=== PATIENT | female | born 1935 | race Two or more races ===

== ENCOUNTER 2017-11-24 12:04 | Inpatient (IN) | payer MEDICARE, OTHER ==
[2017-11-24] MEDS: VANCOMYCIN 1 GM (PMX) 250 ML IVPB (12:15)
[2017-11-24 12:40] LABS: ADD MAN DIFF? NO
[2017-11-24 12:47] LABS: WHITE BLOOD COUNT 22.7 10^3/ul (4.8-10.8)
[2017-11-24 12:47] LABS: ABNORMAL IP MESSAGE 1; BASOPHIL # 0.1 10^3/ul (0.0-0.1); BASOPHILS % 0.3 % (0.0-2.0); HEMATOCRIT 35.3 % (37.0-47.0); HEMOGLOBIN 11.2 g/dl (12.0-16.0); LYMPHOCYTES # 0.8 10^3/ul (0.8-2.9); LYMPHOCYTES % 3.6 % (15.0-51.0); MEAN CORPUSCULAR HEMOGLOBIN 26.5 pg (29.0-33.0); MEAN CORPUSCULAR HGB CONC 31.7 g/dl (32.0-37.0); MEAN CORPUSCULAR VOLUME 83.5 fl (82.0-101.0); MONOCYTE # 0.7 10^3/ul (0.3-0.9); MONOCYTES % 3.1 % (0.0-11.0); NEUTROPHIL # 20.8 10^3/ul (1.6-7.5); NEUTROPHILS % 91.6 % (39.0-77.0); PLATELET COUNT 324 10^3/UL (140-415); RED BLOOD COUNT 4.23 10^6/ul (4.20-5.40); RED CELL DISTRIBUTION WIDTH 14.3 % (11.5-14.5)
[2017-11-24 12:54] LABS: POSITIVE DIFF @See below
[2017-11-24] MEDS: ACETAMINOPHEN 650 MG SUPP PR (12:55)
[2017-11-24] MEDS: SODIUM CHLORIDE 0.9% 1L BAG IV* (12:55)
[2017-11-24] MEDS: PIPER-TAZO 3.375 GM IV (PMX) 100 ML IVPB (12:55)
[2017-11-24 13:05] LABS: ALANINE AMINOTRANSFERASE 147 IU/L (13-69); ALBUMIN 3.3 g/dl (3.3-4.9); ALBUMIN/GLOBULIN RATIO 0.78; ALKALINE PHOSPHATASE 86 IU/L (42-121); ANION GAP 17 (8-16); ASPARTATE AMINO TRANSFERASE 120 IU/L (15-46); BILIRUBIN,INDIRECT 0.4 mg/dl (0-1.1); BILIRUBIN,TOTAL 0.4 mg/dl (0.2-1.3); BLOOD UREA NITROGEN 60 mg/dl (7-20); CALCIUM 8.7 mg/dl (8.4-10.2); CARBON DIOXIDE 15 mmol/L (21-31); CHLORIDE 114 mmol/L (97-110); CREATININE 1.28 mg/dl (0.44-1.00); GLUCOSE 301 mg/dl (70-220); POTASSIUM 4.9 mmol/L (3.5-5.1); SODIUM 141 mmol/L (135-144); TOTAL PROTEIN 7.5 g/dl (6.1-8.1)
[2017-11-24 13:07] LABS: DIGOXIN 0.6 ng/ml (1.0-2.0)
[2017-11-24 13:09] LABS: PROTIME 15.4 Sec (11.9-14.9); PT RATIO 1.2
[2017-11-24 13:10] LABS: PARTIAL THROMBOPLASTIN TIME 28.1 Sec (25.0-35.0)
[2017-11-24 13:17] LABS: TROPONIN-I 0.027 ng/ml (0.000-0.120)
[2017-11-24] MEDS ORDERED: ONDANSETRON 4 MG INJ IV (14:00)
[2017-11-24] MEDS ORDERED: METOCLOPRAMIDE 10 MG TAB PO (14:00)
[2017-11-24] MEDS ORDERED: ACETAMINOPHEN 325 MG TAB PO (14:00)
[2017-11-24] MEDS ORDERED: NITROGLYCERIN (SL) 0.4 MG TAB SL (14:00)
[2017-11-24 14:25] LABS: HEMOGLOBIN A1C 6.2 % (0-5.9)
[2017-11-24] MEDS ORDERED: VANCOMYCIN IV PER PHARMACY XX (14:30)
[2017-11-24] MEDS ORDERED: NACL 0.9% 3 ML SYG IV (14:30)
[2017-11-24] MEDS: SOD CHLORIDE 0.9% 1,000 ML IV ×2 (14:45→19:04)
[2017-11-24] MEDS: HYDROCORTISONE 100 MG INJ IV (15:26)
[2017-11-24 15:38] LABS: LACTIC ACID 1.2 mmol/L (0.5-2.0)
[2017-11-24] MEDS: LIDOCAINE 1% (MPF) 5 ML VIAL SC (16:00)
[2017-11-24] MEDS ORDERED: SOD CHLORIDE 0.9% 1,000 ML IV (16:30)
[2017-11-24] MEDS ORDERED: DOCUSATE SODIUM 100 MG CAP PO (17:30)
[2017-11-24] MEDS: MIDODRINE 5 MG TAB PO ×2 (17:30→21:00)
[2017-11-24 18:37] LABS: LACTIC ACID 1.1 mmol/L (0.5-2.0)
[2017-11-24] MEDS: QUETIAPINE 25 MG TAB PO (21:00)
[2017-11-24] MEDS: INSULIN ASPART [NOVOLOG] 3 ML PEN SC ×2 (21:00)
[2017-11-24] MEDS: METOPROLOL 25 MG TAB PO (21:00)
[2017-11-24] MEDS: PREGABALIN 50 MG CAP PO (21:00)
[2017-11-24] MEDS: SERTRALINE 50 MG TAB PO (21:00)
[2017-11-25] MEDS: PIPER-TAZO 2.25 GM (PMX) 50 ML IVPB ×4 (02:47→21:42)
[2017-11-25] MEDS: NYSTATIN 15 GM CR TOP ×3 (02:48→21:23)
[2017-11-25] MEDS: SOD CHLORIDE 0.9% 1,000 ML IV ×2 (03:32→15:38)
[2017-11-25 06:04] LABS: ADD MAN DIFF? NO
[2017-11-25 06:10] LABS: WHITE BLOOD COUNT 10.8 10^3/ul (4.8-10.8)
[2017-11-25 06:10] LABS: BASOPHILS % 0.2 % (0.0-2.0); EOSINOPHILS % 0.4 % (0.0-7.0); HEMATOCRIT 28.4 % (37.0-47.0); LYMPHOCYTES # 0.9 10^3/ul (0.8-2.9); LYMPHOCYTES % 8.4 % (15.0-51.0); MEAN CORPUSCULAR HEMOGLOBIN 26.8 pg (29.0-33.0); MEAN CORPUSCULAR HGB CONC 31.7 g/dl (32.0-37.0); MEAN CORPUSCULAR VOLUME 84.5 fl (82.0-101.0); MEAN PLATELET VOLUME 9.5 fl (7.4-10.4); MONOCYTE # 0.7 10^3/ul (0.3-0.9); MONOCYTES % 6.6 % (0.0-11.0); NEUTROPHILS % 83.5 % (39.0-77.0); PLATELET COUNT 228 10^3/UL (140-415); RED BLOOD COUNT 3.36 10^6/ul (4.20-5.40); RED CELL DISTRIBUTION WIDTH 14.5 % (11.5-14.5)
[2017-11-25 06:50] LABS: ALBUMIN 2.3 g/dl (3.3-4.9); ANION GAP 14 (8-16); BLOOD UREA NITROGEN 53 mg/dl (7-20); CARBON DIOXIDE 15 mmol/L (21-31); CHLORIDE 122 mmol/L (97-110); CREATININE 1.14 mg/dl (0.44-1.00); GLUCOSE 142 mg/dl (70-220); POTASSIUM 4.1 mmol/L (3.5-5.1); SODIUM 147 mmol/L (135-144)
[2017-11-25] MEDS: INSULIN ASPART [NOVOLOG] 3 ML PEN SC ×4 (08:15→21:00)
[2017-11-25] MEDS ORDERED: NON-FORMULARY/PATIENT OWN MED (Cranberry Fruit (Cranberry) 450 MG) PO (09:00)
[2017-11-25] MEDS ORDERED: OMEPRAZOLE 10 MG PO (09:00)
[2017-11-25] MEDS: PANTOPRAZOLE (EC) 40 MG TAB PO (09:04)
[2017-11-25] MEDS: ASPIRIN (EC) 81 MG TAB PO (09:04)
[2017-11-25] MEDS: POTASSIUM CHLORIDE (SR) 10 MEQ TAB PO (09:04)
[2017-11-25] MEDS: CLOPIDOGREL 75 MG TAB PO (09:04)
[2017-11-25] MEDS: METOPROLOL 25 MG TAB PO ×2 (09:08→21:21)
[2017-11-25] MEDS: LORATADINE 10 MG TAB PO (09:09)
[2017-11-25] MEDS: FERROUS SULFATE (EC) 325 MG TAB PO (09:09)
[2017-11-25] MEDS: MIDODRINE 5 MG TAB PO ×3 (09:09→21:22)
[2017-11-25] MEDS: VITAMIN B COMPLEX/VIT C CAP PO (09:10)
[2017-11-25] MEDS: MULTIVITAMINS/MINERALS TAB PO (09:10)
[2017-11-25] MEDS: PREGABALIN 50 MG CAP PO ×2 (09:20→21:22)
[2017-11-25] MEDS ORDERED: PENDING SANTYL ORDER FOR WOUND CARE XX (12:00)
[2017-11-25] MEDS ORDERED: VANCOMYCIN 1 GM 250 ML IVPB (12:00)
[2017-11-25] MEDS: VANCOMYCIN 1 GM 250 ML IVPB (12:54)
[2017-11-25] MEDS: DIGOXIN 0.125 MG TAB PO (12:59)
[2017-11-25] MEDS ORDERED: COLLAGENASE 5 GM (UD JAR) TOP (15:00)
[2017-11-25] MEDS: QUETIAPINE 25 MG TAB PO (21:21)
[2017-11-25] MEDS: SERTRALINE 50 MG TAB PO (21:22)
[2017-11-26] MEDS: ACCU-CHEK XX (02:00)
[2017-11-26] MEDS: SOD CHLORIDE 0.9% 1,000 ML IV ×2 (02:19→05:42)
[2017-11-26] MEDS: PIPER-TAZO 2.25 GM (PMX) 50 ML IVPB ×3 (05:42→21:32)
[2017-11-26 06:03] LABS: ADD MAN DIFF? NO
[2017-11-26 06:04] LABS: BASOPHILS % 0.2 % (0.0-2.0); EOSINOPHILS # 0.3 10^3/ul (0.0-0.5); EOSINOPHILS % 2.3 % (0.0-7.0); HEMATOCRIT 29.5 % (37.0-47.0); HEMOGLOBIN 9.3 g/dl (12.0-16.0); LYMPHOCYTES % 8.8 % (15.0-51.0); MEAN CORPUSCULAR HEMOGLOBIN 26.2 pg (29.0-33.0); MEAN CORPUSCULAR HGB CONC 31.5 g/dl (32.0-37.0); MEAN CORPUSCULAR VOLUME 83.1 fl (82.0-101.0); MEAN PLATELET VOLUME 9.2 fl (7.4-10.4); MONOCYTE # 0.7 10^3/ul (0.3-0.9); MONOCYTES % 6.4 % (0.0-11.0); NEUTROPHIL # 8.7 10^3/ul (1.6-7.5); NEUTROPHILS % 80.3 % (39.0-77.0); PLATELET COUNT 258 10^3/UL (140-415); RED BLOOD COUNT 3.55 10^6/ul (4.20-5.40); RED CELL DISTRIBUTION WIDTH 14.6 % (11.5-14.5)
[2017-11-26 06:04] LABS: WHITE BLOOD COUNT 10.8 10^3/ul (4.8-10.8)
[2017-11-26] MEDS: INSULIN ASPART [NOVOLOG] 3 ML PEN SC ×4 (08:02→21:00)
[2017-11-26 08:35] LABS: ALBUMIN 2.8 g/dl (3.3-4.9); ANION GAP 14 (8-16); BLOOD UREA NITROGEN 41 mg/dl (7-20); CALCIUM 8.3 mg/dl (8.4-10.2); CARBON DIOXIDE 15 mmol/L (21-31); CHLORIDE 120 mmol/L (97-110); CREATININE 1.14 mg/dl (0.44-1.00); GLUCOSE 85 mg/dl (70-220); PHOSPHORUS 2.9 mg/dl (2.5-4.9); POTASSIUM 3.8 mmol/L (3.5-5.1); SODIUM 145 mmol/L (135-144)
[2017-11-26] MEDS: PANTOPRAZOLE (EC) 40 MG TAB PO (09:21)
[2017-11-26] MEDS: CLOPIDOGREL 75 MG TAB PO (09:21)
[2017-11-26] MEDS: LORATADINE 10 MG TAB PO (09:21)
[2017-11-26] MEDS: MIDODRINE 5 MG TAB PO ×3 (09:21→20:52)
[2017-11-26] MEDS: MULTIVITAMINS/MINERALS TAB PO (09:21)
[2017-11-26] MEDS: ASPIRIN (EC) 81 MG TAB PO (09:22)
[2017-11-26] MEDS: VITAMIN B COMPLEX/VIT C CAP PO (09:22)
[2017-11-26] MEDS: POTASSIUM CHLORIDE (SR) 10 MEQ TAB PO (09:22)
[2017-11-26] MEDS: PREGABALIN 50 MG CAP PO ×2 (09:22→20:54)
[2017-11-26] MEDS: COLLAGENASE 5 GM (UD JAR) TOP (09:22)
[2017-11-26] MEDS: METOPROLOL 25 MG TAB PO ×2 (09:22→21:32)
[2017-11-26] MEDS: NYSTATIN 15 GM CR TOP ×2 (09:22→21:01)
[2017-11-26] MEDS: FERROUS SULFATE (EC) 325 MG TAB PO (09:22)
[2017-11-26] MEDS: VANCOMYCIN 1 GM 250 ML IVPB (12:40)
[2017-11-26] MEDS: ALBUTEROL 0.083% (NEB) 2.5 MG/3 ML AMP HHN ×2 (14:17→19:56)
[2017-11-26] MEDS: QUETIAPINE 25 MG TAB PO (20:51)
[2017-11-26] MEDS: SERTRALINE 50 MG TAB PO (20:51)
[2017-11-27] MEDS: ACCU-CHEK XX (02:00)
[2017-11-27] MEDS: ACETAMINOPHEN 325 MG TAB PO (02:31)
[2017-11-27 05:55] LABS: ADD MAN DIFF? NO
[2017-11-27 06:05] LABS: BASOPHILS % 0.1 % (0.0-2.0); EOSINOPHILS # 0.1 10^3/ul (0.0-0.5); EOSINOPHILS % 0.8 % (0.0-7.0); HEMATOCRIT 29.9 % (37.0-47.0); HEMOGLOBIN 9.5 g/dl (12.0-16.0); LYMPHOCYTES # 1.1 10^3/ul (0.8-2.9); LYMPHOCYTES % 7.7 % (15.0-51.0); MEAN CORPUSCULAR HEMOGLOBIN 26.2 pg (29.0-33.0); MEAN CORPUSCULAR HGB CONC 31.8 g/dl (32.0-37.0); MEAN CORPUSCULAR VOLUME 82.6 fl (82.0-101.0); MEAN PLATELET VOLUME 9.1 fl (7.4-10.4); MONOCYTE # 0.8 10^3/ul (0.3-0.9); MONOCYTES % 6.1 % (0.0-11.0); NEUTROPHIL # 11.4 10^3/ul (1.6-7.5); NEUTROPHILS % 83.7 % (39.0-77.0); PLATELET COUNT 246 10^3/UL (140-415); RED BLOOD COUNT 3.62 10^6/ul (4.20-5.40); RED CELL DISTRIBUTION WIDTH 14.7 % (11.5-14.5)
[2017-11-27 06:05] LABS: WHITE BLOOD COUNT 13.7 10^3/ul (4.8-10.8)
[2017-11-27] MEDS: PIPER-TAZO 2.25 GM (PMX) 50 ML IVPB ×3 (06:24→21:11)
[2017-11-27 07:03] LABS: ALBUMIN 2.9 g/dl (3.3-4.9); ANION GAP 12 (8-16); BLOOD UREA NITROGEN 30 mg/dl (7-20); CALCIUM 8.4 mg/dl (8.4-10.2); CARBON DIOXIDE 16 mmol/L (21-31); CHLORIDE 121 mmol/L (97-110); CREATININE 1.04 mg/dl (0.44-1.00); GLUCOSE 134 mg/dl (70-220); MAGNESIUM 1.9 mg/dl (1.7-2.5); PHOSPHORUS 3.4 mg/dl (2.5-4.9); POTASSIUM 3.6 mmol/L (3.5-5.1); SODIUM 145 mmol/L (135-144)
[2017-11-27] MEDS: INSULIN ASPART [NOVOLOG] 3 ML PEN SC ×4 (08:15→21:53)
[2017-11-27] MEDS: COLLAGENASE 5 GM (UD JAR) TOP (08:43)
[2017-11-27] MEDS: NYSTATIN 15 GM CR TOP ×2 (08:44→21:12)
[2017-11-27] MEDS: LORATADINE 10 MG TAB PO (08:44)
[2017-11-27] MEDS: FERROUS SULFATE (EC) 325 MG TAB PO (08:44)
[2017-11-27] MEDS: PREGABALIN 50 MG CAP PO ×2 (08:44→21:03)
[2017-11-27] MEDS: CLOPIDOGREL 75 MG TAB PO (08:44)
[2017-11-27] MEDS: VITAMIN B COMPLEX/VIT C CAP PO (08:44)
[2017-11-27] MEDS: ASPIRIN (EC) 81 MG TAB PO (08:44)
[2017-11-27] MEDS: POTASSIUM CHLORIDE (SR) 10 MEQ TAB PO (08:44)
[2017-11-27] MEDS: MIDODRINE 5 MG TAB PO ×3 (08:55→21:06)
[2017-11-27] MEDS: MULTIVITAMINS/MINERALS TAB PO (08:55)
[2017-11-27] MEDS: METOPROLOL 25 MG TAB PO ×2 (08:56→21:04)
[2017-11-27] MEDS: PANTOPRAZOLE (EC) 40 MG TAB PO (08:56)
[2017-11-27] MEDS: DEXTROSE 5%-0.45% NACL 1,000 ML IV (10:16)
[2017-11-27] MEDS: DIGOXIN 0.125 MG TAB PO (12:35)
[2017-11-27 12:38] LABS: VANCOMYCIN,TROUGH 12.8 ug/ml (10.0-20.0)
[2017-11-27] MEDS: VANCOMYCIN 1 GM 250 ML IVPB (13:23)
[2017-11-27] MEDS: BALSAM PERU/CASTOR OIL 60 GM TUBE TOP (21:03)
[2017-11-27] MEDS: QUETIAPINE 25 MG TAB PO (21:03)
[2017-11-27] MEDS: SERTRALINE 50 MG TAB PO (21:05)
[2017-11-27] MEDS: DOCUSATE SODIUM 100 MG CAP PO (21:11)
[2017-11-27] MEDS: SODIUM HYPOCHLORITE (1/40) 1 APPLIC BTL IRR (21:13)
[2017-11-28] MEDS: ACCU-CHEK XX (02:00)
[2017-11-28] MEDS: ACETAMINOPHEN 325 MG TAB PO (03:01)
[2017-11-28] MEDS: PIPER-TAZO 2.25 GM (PMX) 50 ML IVPB ×3 (06:04→21:57)
[2017-11-28] MEDS: DEXTROSE 5%-0.45% NACL 1,000 ML IV ×2 (06:05→10:49)
[2017-11-28 07:02] LABS: ADD MAN DIFF? NO
[2017-11-28 07:04] LABS: WHITE BLOOD COUNT 14.9 10^3/ul (4.8-10.8)
[2017-11-28 07:04] LABS: HEMOGLOBIN 9.6 g/dl (12.0-16.0); RED BLOOD COUNT 3.63 10^6/ul (4.20-5.40)
[2017-11-28 07:05] LABS: BASOPHILS % 0.2 % (0.0-2.0); EOSINOPHILS # 0.4 10^3/ul (0.0-0.5); EOSINOPHILS % 2.5 % (0.0-7.0); HEMATOCRIT 30.3 % (37.0-47.0); LYMPHOCYTES # 1.5 10^3/ul (0.8-2.9); MEAN CORPUSCULAR HEMOGLOBIN 26.4 pg (29.0-33.0); MEAN CORPUSCULAR HGB CONC 31.7 g/dl (32.0-37.0); MEAN CORPUSCULAR VOLUME 83.5 fl (82.0-101.0); MONOCYTES % 6.8 % (0.0-11.0); NEUTROPHIL # 11.6 10^3/ul (1.6-7.5); NEUTROPHILS % 78.2 % (39.0-77.0); PLATELET COUNT 265 10^3/UL (140-415); RED CELL DISTRIBUTION WIDTH 14.8 % (11.5-14.5)
[2017-11-28 07:27] LABS: ANION GAP 14 (8-16); BLOOD UREA NITROGEN 25 mg/dl (7-20); CALCIUM 8.3 mg/dl (8.4-10.2); CARBON DIOXIDE 17 mmol/L (21-31); CHLORIDE 117 mmol/L (97-110); CREATININE 1.04 mg/dl (0.44-1.00); GLUCOSE 141 mg/dl (70-220); MAGNESIUM 1.9 mg/dl (1.7-2.5); PHOSPHORUS 3.3 mg/dl (2.5-4.9); POTASSIUM 3.6 mmol/L (3.5-5.1); SODIUM 144 mmol/L (135-144)
[2017-11-28] MEDS: INSULIN ASPART [NOVOLOG] 3 ML PEN SC ×4 (08:15→21:43)
[2017-11-28] MEDS: FERROUS SULFATE (EC) 325 MG TAB PO (09:00)
[2017-11-28] MEDS: METOPROLOL 25 MG TAB PO ×3 (09:00→21:00)
[2017-11-28] MEDS: PREGABALIN 50 MG CAP PO ×2 (09:00→21:55)
[2017-11-28] MEDS: PANTOPRAZOLE (EC) 40 MG TAB PO ×2 (09:00→13:48)
[2017-11-28] MEDS: MIDODRINE 5 MG TAB PO ×3 (09:00→21:00)
[2017-11-28] MEDS: ASPIRIN (EC) 81 MG TAB PO ×2 (09:00→13:55)
[2017-11-28] MEDS: CLOPIDOGREL 75 MG TAB PO ×2 (09:00→13:50)
[2017-11-28] MEDS: POTASSIUM CHLORIDE (SR) 10 MEQ TAB PO ×2 (09:00→13:50)
[2017-11-28] MEDS: LORATADINE 10 MG TAB PO (09:00)
[2017-11-28] MEDS: MULTIVITAMINS/MINERALS TAB PO ×2 (09:00→13:48)
[2017-11-28] MEDS: VITAMIN B COMPLEX/VIT C CAP PO (09:00)
[2017-11-28] MEDS: NYSTATIN 15 GM CR TOP ×2 (09:21→21:40)
[2017-11-28] MEDS: BALSAM PERU/CASTOR OIL 60 GM TUBE TOP ×2 (10:51→21:40)
[2017-11-28] MEDS: SODIUM HYPOCHLORITE (1/40) 1 APPLIC BTL IRR ×2 (11:00→21:00)
[2017-11-28] MEDS: traMADol 50 MG TAB PO (12:52)
[2017-11-28] MEDS: MAGNESIUM HYDROXIDE 30ML CUP PO (12:52)
[2017-11-28] MEDS: DOCUSATE SODIUM 100 MG CAP PO (12:52)
[2017-11-28] MEDS: VANCOMYCIN 1.25 GM in SOD CHLORIDE 0.9% 250 ML IVPB (13:00)
[2017-11-28] MEDS: COLLAGENASE 5 GM (UD JAR) TOP (13:39)
[2017-11-28] MEDS: HYDROCODONE/APAP (5/325) TAB PO (14:43)
[2017-11-28] MEDS ORDERED: KETAMINE (100 MG/ML) 5 ML VIAL (17:33)
[2017-11-28] MEDS: QUETIAPINE 25 MG TAB PO (21:39)
[2017-11-28] MEDS: SERTRALINE 50 MG TAB PO (21:39)
[2017-11-29] MEDS: HYDROCODONE/APAP (5/325) TAB PO ×3 (01:14→20:30)
[2017-11-29] MEDS: ACCU-CHEK XX (02:00)
[2017-11-29] MEDS: PIPER-TAZO 2.25 GM (PMX) 50 ML IVPB ×3 (05:36→21:42)
[2017-11-29 06:24] LABS: ADD MAN DIFF? NO
[2017-11-29 06:29] LABS: BASOPHILS % 0.2 % (0.0-2.0); EOSINOPHILS # 0.4 10^3/ul (0.0-0.5); EOSINOPHILS % 3.2 % (0.0-7.0); HEMATOCRIT 28.7 % (37.0-47.0); HEMOGLOBIN 9.1 g/dl (12.0-16.0); LYMPHOCYTES # 1.3 10^3/ul (0.8-2.9); LYMPHOCYTES % 10.5 % (15.0-51.0); MEAN CORPUSCULAR HEMOGLOBIN 26.7 pg (29.0-33.0); MEAN CORPUSCULAR HGB CONC 31.7 g/dl (32.0-37.0); MEAN CORPUSCULAR VOLUME 84.2 fl (82.0-101.0); MEAN PLATELET VOLUME 9.3 fl (7.4-10.4); MONOCYTE # 0.8 10^3/ul (0.3-0.9); NEUTROPHIL # 9.7 10^3/ul (1.6-7.5); NEUTROPHILS % 78.2 % (39.0-77.0); PLATELET COUNT 231 10^3/UL (140-415); RED BLOOD COUNT 3.41 10^6/ul (4.20-5.40); RED CELL DISTRIBUTION WIDTH 14.8 % (11.5-14.5)
[2017-11-29 06:29] LABS: WHITE BLOOD COUNT 12.4 10^3/ul (4.8-10.8)
[2017-11-29 07:06] LABS: ANION GAP 9 (8-16); BLOOD UREA NITROGEN 20 mg/dl (7-20); CALCIUM 8.1 mg/dl (8.4-10.2); CARBON DIOXIDE 19 mmol/L (21-31); CHLORIDE 117 mmol/L (97-110); CREATININE 0.86 mg/dl (0.44-1.00); GLUCOSE 138 mg/dl (70-220); PHOSPHORUS 2.9 mg/dl (2.5-4.9); POTASSIUM 3.7 mmol/L (3.5-5.1); SODIUM 141 mmol/L (135-144)
[2017-11-29] MEDS: FERROUS SULFATE (EC) 325 MG TAB PO (08:18)
[2017-11-29] MEDS: MIDODRINE 5 MG TAB PO ×3 (08:18→20:44)
[2017-11-29] MEDS: MULTIVITAMINS/MINERALS TAB PO (08:18)
[2017-11-29] MEDS: PANTOPRAZOLE (EC) 40 MG TAB PO (08:18)
[2017-11-29] MEDS: LORATADINE 10 MG TAB PO (08:18)
[2017-11-29] MEDS: VITAMIN B COMPLEX/VIT C CAP PO (08:18)
[2017-11-29] MEDS: BALSAM PERU/CASTOR OIL 60 GM TUBE TOP ×2 (08:19→20:32)
[2017-11-29] MEDS: NYSTATIN 15 GM CR TOP ×2 (08:19→20:32)
[2017-11-29] MEDS: METOPROLOL 25 MG TAB PO ×2 (08:19→20:29)
[2017-11-29] MEDS: POTASSIUM CHLORIDE (SR) 10 MEQ TAB PO (08:19)
[2017-11-29] MEDS: PREGABALIN 50 MG CAP PO ×2 (08:19→20:29)
[2017-11-29] MEDS: INSULIN ASPART [NOVOLOG] 3 ML PEN SC ×4 (08:22→20:44)
[2017-11-29] MEDS: traMADol 50 MG TAB PO (12:11)
[2017-11-29] MEDS: DIGOXIN 0.125 MG TAB PO (12:13)
[2017-11-29] MEDS: VANCOMYCIN 1.25 GM in SOD CHLORIDE 0.9% 250 ML IVPB (12:55)
[2017-11-29] MEDS: DEXTROSE 5%-0.45% NACL 1,000 ML IV (18:28)
[2017-11-29] MEDS: SERTRALINE 50 MG TAB PO (20:28)
[2017-11-29] MEDS: QUETIAPINE 25 MG TAB PO (20:29)
[2017-11-30] MEDS: ACCU-CHEK XX (02:00)
[2017-11-30] MEDS: PIPER-TAZO 2.25 GM (PMX) 50 ML IVPB ×3 (06:09→22:20)
[2017-11-30 06:21] LABS: ADD MAN DIFF? NO
[2017-11-30 06:28] LABS: BASOPHILS % 0.2 % (0.0-2.0); EOSINOPHILS # 0.4 10^3/ul (0.0-0.5); EOSINOPHILS % 3.8 % (0.0-7.0); HEMATOCRIT 28.3 % (37.0-47.0); HEMOGLOBIN 8.8 g/dl (12.0-16.0); LYMPHOCYTES # 1.1 10^3/ul (0.8-2.9); LYMPHOCYTES % 10.8 % (15.0-51.0); MEAN CORPUSCULAR HGB CONC 31.1 g/dl (32.0-37.0); MEAN CORPUSCULAR VOLUME 83.5 fl (82.0-101.0); MEAN PLATELET VOLUME 9.3 fl (7.4-10.4); MONOCYTE # 0.6 10^3/ul (0.3-0.9); MONOCYTES % 5.4 % (0.0-11.0); NEUTROPHILS % 77.6 % (39.0-77.0); PLATELET COUNT 242 10^3/UL (140-415); RED BLOOD COUNT 3.39 10^6/ul (4.20-5.40)
[2017-11-30 06:28] LABS: WHITE BLOOD COUNT 10.3 10^3/ul (4.8-10.8)
[2017-11-30 07:04] LABS: ANION GAP 8 (8-16); BLOOD UREA NITROGEN 14 mg/dl (7-20); CALCIUM 7.9 mg/dl (8.4-10.2); CARBON DIOXIDE 19 mmol/L (21-31); CHLORIDE 115 mmol/L (97-110); CREATININE 0.75 mg/dl (0.44-1.00); GLUCOSE 139 mg/dl (70-220); MAGNESIUM 1.9 mg/dl (1.7-2.5); PHOSPHORUS 2.6 mg/dl (2.5-4.9); POTASSIUM 3.4 mmol/L (3.5-5.1); SODIUM 139 mmol/L (135-144)
[2017-11-30] MEDS: INSULIN ASPART [NOVOLOG] 3 ML PEN SC ×4 (08:41→21:00)
[2017-11-30] MEDS: MULTIVITAMINS/MINERALS TAB PO (09:28)
[2017-11-30] MEDS: VITAMIN B COMPLEX/VIT C CAP PO (09:28)
[2017-11-30] MEDS: NYSTATIN 15 GM CR TOP ×2 (09:28→21:57)
[2017-11-30] MEDS: MIDODRINE 5 MG TAB PO ×2 (09:28→21:00)
[2017-11-30] MEDS: LORATADINE 10 MG TAB PO (09:28)
[2017-11-30] MEDS: POTASSIUM CHLORIDE (SR) 10 MEQ TAB PO (09:28)
[2017-11-30] MEDS: FERROUS SULFATE (EC) 325 MG TAB PO (09:28)
[2017-11-30] MEDS: METOPROLOL 25 MG TAB PO ×2 (09:29→21:56)
[2017-11-30] MEDS: BALSAM PERU/CASTOR OIL 60 GM TUBE TOP ×2 (09:29→21:58)
[2017-11-30] MEDS: PANTOPRAZOLE (EC) 40 MG TAB PO (09:29)
[2017-11-30] MEDS: PREGABALIN 50 MG CAP PO ×2 (09:40→21:56)
[2017-11-30] MEDS: POTASSIUM CHLORIDE 100 ML IVPB ×2 (11:29→13:11)
[2017-11-30] MEDS: traMADol 50 MG TAB PO (12:08)
[2017-11-30] MEDS: VANCOMYCIN 1.25 GM in SOD CHLORIDE 0.9% 250 ML IVPB (17:08)
[2017-11-30] MEDS: DEXTROSE 5%-0.45% NACL 1,000 ML IV ×2 (17:46→22:20)
[2017-11-30] MEDS: SERTRALINE 50 MG TAB PO (21:55)
[2017-11-30] MEDS: QUETIAPINE 25 MG TAB PO (21:56)
[2017-12-01] MEDS: traMADol 50 MG TAB PO ×2 (01:03→12:48)
[2017-12-01] MEDS: ACCU-CHEK XX (01:21)
[2017-12-01 06:02] LABS: ADD MAN DIFF? NO
[2017-12-01] MEDS: PIPER-TAZO 2.25 GM (PMX) 50 ML IVPB (06:04)
[2017-12-01 06:05] LABS: WHITE BLOOD COUNT 11.4 10^3/ul (4.8-10.8)
[2017-12-01 06:05] LABS: BASOPHILS % 0.2 % (0.0-2.0); EOSINOPHILS # 0.4 10^3/ul (0.0-0.5); EOSINOPHILS % 3.2 % (0.0-7.0); HEMATOCRIT 29.6 % (37.0-47.0); HEMOGLOBIN 9.1 g/dl (12.0-16.0); LYMPHOCYTES # 1.5 10^3/ul (0.8-2.9); LYMPHOCYTES % 12.8 % (15.0-51.0); MEAN CORPUSCULAR HEMOGLOBIN 25.5 pg (29.0-33.0); MEAN CORPUSCULAR HGB CONC 30.7 g/dl (32.0-37.0); MEAN CORPUSCULAR VOLUME 82.9 fl (82.0-101.0); MEAN PLATELET VOLUME 8.8 fl (7.4-10.4); MONOCYTE # 0.7 10^3/ul (0.3-0.9); MONOCYTES % 5.7 % (0.0-11.0); NEUTROPHIL # 8.7 10^3/ul (1.6-7.5); NEUTROPHILS % 76.3 % (39.0-77.0); PLATELET COUNT 236 10^3/UL (140-415); RED BLOOD COUNT 3.57 10^6/ul (4.20-5.40)
[2017-12-01 06:30] LABS: ANION GAP 10 (8-16); BLOOD UREA NITROGEN 10 mg/dl (7-20); CALCIUM 7.8 mg/dl (8.4-10.2); CARBON DIOXIDE 21 mmol/L (21-31); CHLORIDE 112 mmol/L (97-110); CREATININE 0.67 mg/dl (0.44-1.00); GLUCOSE 130 mg/dl (70-220); PHOSPHORUS 2.7 mg/dl (2.5-4.9); POTASSIUM 3.6 mmol/L (3.5-5.1); SODIUM 139 mmol/L (135-144)
[2017-12-01] MEDS: INSULIN ASPART [NOVOLOG] 3 ML PEN SC ×4 (07:58→21:00)
[2017-12-01] MEDS: PANTOPRAZOLE (EC) 40 MG TAB PO (09:00)
[2017-12-01] MEDS: POTASSIUM CHLORIDE (SR) 10 MEQ TAB PO (09:00)
[2017-12-01] MEDS: METOPROLOL 25 MG TAB PO ×2 (09:00→21:11)
[2017-12-01] MEDS ORDERED: GLUCOSE GEL 15 GRAM TUBE PO ×2 (09:00)
[2017-12-01] MEDS: MIDODRINE 5 MG TAB PO ×2 (09:00→21:11)
[2017-12-01] MEDS: FERROUS SULFATE (EC) 325 MG TAB PO (09:00)
[2017-12-01] MEDS: VITAMIN B COMPLEX/VIT C CAP PO (09:00)
[2017-12-01] MEDS ORDERED: GLUCAGON 1 MG INJ IM (09:00)
[2017-12-01] MEDS: LORATADINE 10 MG TAB PO (09:00)
[2017-12-01] MEDS: MULTIVITAMINS/MINERALS TAB PO (09:00)
[2017-12-01] MEDS ORDERED: DEXTROSE 50% 50 ML SYRINGE IV ×2 (09:00)
[2017-12-01] MEDS: PREGABALIN 50 MG CAP PO ×2 (09:00→21:11)
[2017-12-01] MEDS ORDERED: GLUCOSE GEL 15 GRAM TUBE BUCCAL (09:00)
[2017-12-01] MEDS: HYDROCODONE/APAP (5/325) TAB PO ×2 (09:29→15:25)
[2017-12-01] MEDS: ONDANSETRON 4 MG INJ IV (12:48)
[2017-12-01] MEDS: DIGOXIN 0.125 MG TAB PO (13:56)
[2017-12-01] MEDS ORDERED: ARTIFICIAL TEARS 15 ML OPH BOTH EYES (14:30)
[2017-12-01] MEDS: LIDOCAINE 1% (MPF) 5 ML VIAL SC (16:00)
[2017-12-01] MEDS: SOD CHLORIDE 0.9% 100 ML (16:25)
[2017-12-01] MEDS: BALSAM PERU/CASTOR OIL 60 GM TUBE TOP (17:26)
[2017-12-01] MEDS: NYSTATIN 15 GM CR TOP ×2 (17:26→22:52)
[2017-12-01] MEDS: VANCOMYCIN 1.25 GM in SOD CHLORIDE 0.9% 250 ML IVPB (18:29)
[2017-12-01] MEDS: SERTRALINE 50 MG TAB PO (21:11)
[2017-12-01] MEDS: QUETIAPINE 25 MG TAB PO (21:11)
[2017-12-01] MEDS: DEXTROSE 5%-0.45% NACL 1,000 ML IV (22:52)
[2017-12-02] MEDS: ACCU-CHEK XX (02:00)
[2017-12-02] MEDS: BALSAM PERU/CASTOR OIL 60 GM TUBE TOP ×2 (04:09→08:38)
[2017-12-02 05:57] LABS: ADD MAN DIFF? NO
[2017-12-02 06:06] LABS: WHITE BLOOD COUNT 12.2 10^3/ul (4.8-10.8)
[2017-12-02 06:06] LABS: BASOPHILS % 0.2 % (0.0-2.0); EOSINOPHILS # 0.4 10^3/ul (0.0-0.5); EOSINOPHILS % 2.9 % (0.0-7.0); HEMATOCRIT 28.3 % (37.0-47.0); HEMOGLOBIN 8.8 g/dl (12.0-16.0); LYMPHOCYTES # 1.3 10^3/ul (0.8-2.9); LYMPHOCYTES % 10.8 % (15.0-51.0); MEAN CORPUSCULAR HEMOGLOBIN 25.8 pg (29.0-33.0); MEAN CORPUSCULAR HGB CONC 31.1 g/dl (32.0-37.0); MEAN PLATELET VOLUME 8.9 fl (7.4-10.4); MONOCYTE # 0.8 10^3/ul (0.3-0.9); MONOCYTES % 6.1 % (0.0-11.0); NEUTROPHIL # 9.6 10^3/ul (1.6-7.5); NEUTROPHILS % 78.2 % (39.0-77.0); PLATELET COUNT 246 10^3/UL (140-415); RED BLOOD COUNT 3.41 10^6/ul (4.20-5.40)
[2017-12-02 06:38] LABS: ANION GAP 9 (8-16); BLOOD UREA NITROGEN 8 mg/dl (7-20); CALCIUM 7.8 mg/dl (8.4-10.2); CARBON DIOXIDE 21 mmol/L (21-31); CHLORIDE 112 mmol/L (97-110); CREATININE 0.67 mg/dl (0.44-1.00); GLUCOSE 146 mg/dl (70-220); POTASSIUM 3.5 mmol/L (3.5-5.1); SODIUM 138 mmol/L (135-144)
[2017-12-02] MEDS: INSULIN ASPART [NOVOLOG] 3 ML PEN SC ×4 (08:33→20:54)
[2017-12-02] MEDS: LORATADINE 10 MG TAB PO (08:34)
[2017-12-02] MEDS: VITAMIN B COMPLEX/VIT C CAP PO (08:34)
[2017-12-02] MEDS: POTASSIUM CHLORIDE (SR) 10 MEQ TAB PO (08:35)
[2017-12-02] MEDS: FERROUS SULFATE (EC) 325 MG TAB PO (08:35)
[2017-12-02] MEDS: PREGABALIN 50 MG CAP PO ×2 (08:37→20:35)
[2017-12-02] MEDS: MULTIVITAMINS/MINERALS TAB PO (08:37)
[2017-12-02] MEDS: PANTOPRAZOLE (EC) 40 MG TAB PO (08:37)
[2017-12-02] MEDS: NYSTATIN 15 GM CR TOP ×2 (08:37→22:24)
[2017-12-02] MEDS: METOPROLOL 25 MG TAB PO ×2 (08:46→20:35)
[2017-12-02] MEDS: MIDODRINE 5 MG TAB PO (08:46)
[2017-12-02] MEDS ORDERED: MIDODRINE 5 MG TAB PO (09:30)
[2017-12-02] MEDS: traMADol 50 MG TAB PO (12:53)
[2017-12-02] MEDS: VANCOMYCIN 1.25 GM in SOD CHLORIDE 0.9% 250 ML IVPB (17:39)
[2017-12-02] MEDS: DEXTROSE 5%-0.45% NACL 1,000 ML IV (19:10)
[2017-12-02] MEDS: HYDROCODONE/APAP (5/325) TAB PO ×2 (19:11→20:35)
[2017-12-02] MEDS: QUETIAPINE 25 MG TAB PO (20:35)
[2017-12-02] MEDS: SERTRALINE 50 MG TAB PO (20:35)
[2017-12-03] MEDS: ACCU-CHEK XX (01:07)
[2017-12-03] MEDS: BALSAM PERU/CASTOR OIL 60 GM TUBE TOP ×3 (01:34→20:53)
[2017-12-03] MEDS: HYDROCODONE/APAP (5/325) TAB PO ×2 (01:42→13:26)
[2017-12-03 05:37] LABS: ADD MAN DIFF? NO
[2017-12-03 05:53] LABS: WHITE BLOOD COUNT 11.9 10^3/ul (4.8-10.8)
[2017-12-03 05:53] LABS: BASOPHILS % 0.2 % (0.0-2.0); EOSINOPHILS # 0.3 10^3/ul (0.0-0.5); EOSINOPHILS % 2.5 % (0.0-7.0); HEMATOCRIT 27.2 % (37.0-47.0); HEMOGLOBIN 8.5 g/dl (12.0-16.0); LYMPHOCYTES # 1.3 10^3/ul (0.8-2.9); LYMPHOCYTES % 10.6 % (15.0-51.0); MEAN CORPUSCULAR HGB CONC 31.3 g/dl (32.0-37.0); MEAN CORPUSCULAR VOLUME 83.2 fl (82.0-101.0); MEAN PLATELET VOLUME 8.9 fl (7.4-10.4); MONOCYTE # 0.7 10^3/ul (0.3-0.9); MONOCYTES % 5.7 % (0.0-11.0); NEUTROPHIL # 9.5 10^3/ul (1.6-7.5); NEUTROPHILS % 79.8 % (39.0-77.0); PLATELET COUNT 245 10^3/UL (140-415); RED BLOOD COUNT 3.27 10^6/ul (4.20-5.40); RED CELL DISTRIBUTION WIDTH 14.9 % (11.5-14.5)
[2017-12-03 06:15] LABS: ANION GAP 8 (8-16); BLOOD UREA NITROGEN 9 mg/dl (7-20); CALCIUM 7.9 mg/dl (8.4-10.2); CARBON DIOXIDE 23 mmol/L (21-31); CHLORIDE 112 mmol/L (97-110); CREATININE 0.89 mg/dl (0.44-1.00); GLUCOSE 142 mg/dl (70-220); PHOSPHORUS 3.2 mg/dl (2.5-4.9); POTASSIUM 3.4 mmol/L (3.5-5.1); SODIUM 140 mmol/L (135-144)
[2017-12-03] MEDS: INSULIN ASPART [NOVOLOG] 3 ML PEN SC ×4 (08:13→21:00)
[2017-12-03] MEDS: LORATADINE 10 MG TAB PO ×2 (09:00→09:17)
[2017-12-03] MEDS: PREGABALIN 50 MG CAP PO ×3 (09:00→20:51)
[2017-12-03] MEDS: VITAMIN B COMPLEX/VIT C CAP PO ×2 (09:00→09:18)
[2017-12-03] MEDS: PANTOPRAZOLE (EC) 40 MG TAB PO ×2 (09:00→09:17)
[2017-12-03] MEDS: MULTIVITAMINS/MINERALS TAB PO ×2 (09:00→09:17)
[2017-12-03] MEDS: METOPROLOL 25 MG TAB PO ×3 (09:00→20:52)
[2017-12-03] MEDS: POTASSIUM CHLORIDE (SR) 10 MEQ TAB PO ×2 (09:00→09:18)
[2017-12-03] MEDS: FERROUS SULFATE (EC) 325 MG TAB PO ×2 (09:00→09:17)
[2017-12-03] MEDS: NYSTATIN 15 GM CR TOP ×2 (09:19→20:52)
[2017-12-03] MEDS: POTASSIUM CHLORIDE 20 MEQ POWDER FOR ORAL SOLN PO (09:36)
[2017-12-03] MEDS: POTASSIUM CHLORIDE 100 ML IVPB ×2 (13:38→16:38)
[2017-12-03] MEDS: DIGOXIN 0.125 MG TAB PO (13:38)
[2017-12-03 16:56] LABS: VANCOMYCIN,TROUGH 22.7 ug/ml (10.0-20.0)
[2017-12-03] MEDS: SERTRALINE 50 MG TAB PO (20:51)
[2017-12-03] MEDS: QUETIAPINE 25 MG TAB PO (20:51)
[2017-12-03] MEDS: DEXTROSE 5%-0.45% NACL 1,000 ML IV (22:12)
[2017-12-03] MEDS: VANCOMYCIN 750 MG in SOD CHLORIDE 0.9% 150 ML IVPB (22:22)
[2017-12-04] MEDS: ACCU-CHEK XX (02:00)
[2017-12-04 06:01] LABS: ADD MAN DIFF? NO
[2017-12-04 06:05] LABS: BASOPHILS % 0.3 % (0.0-2.0); EOSINOPHILS # 0.4 10^3/ul (0.0-0.5); EOSINOPHILS % 4.1 % (0.0-7.0); HEMATOCRIT 26.8 % (37.0-47.0); HEMOGLOBIN 8.3 g/dl (12.0-16.0); LYMPHOCYTES # 1.4 10^3/ul (0.8-2.9); LYMPHOCYTES % 14.4 % (15.0-51.0); MEAN CORPUSCULAR HEMOGLOBIN 26.2 pg (29.0-33.0); MEAN CORPUSCULAR VOLUME 84.5 fl (82.0-101.0); MEAN PLATELET VOLUME 8.8 fl (7.4-10.4); MONOCYTE # 0.7 10^3/ul (0.3-0.9); MONOCYTES % 6.6 % (0.0-11.0); NEUTROPHIL # 7.3 10^3/ul (1.6-7.5); NEUTROPHILS % 73.5 % (39.0-77.0); PLATELET COUNT 229 10^3/UL (140-415); RED BLOOD COUNT 3.17 10^6/ul (4.20-5.40)
[2017-12-04 06:27] LABS: ANION GAP 10 (8-16); BLOOD UREA NITROGEN 12 mg/dl (7-20); CARBON DIOXIDE 21 mmol/L (21-31); CHLORIDE 112 mmol/L (97-110); CREATININE 1.19 mg/dl (0.44-1.00); GLUCOSE 139 mg/dl (70-220); MAGNESIUM 2.1 mg/dl (1.7-2.5); PHOSPHORUS 3.3 mg/dl (2.5-4.9); POTASSIUM 4.1 mmol/L (3.5-5.1); SODIUM 139 mmol/L (135-144)
[2017-12-04] MEDS: INSULIN ASPART [NOVOLOG] 3 ML PEN SC ×4 (07:55→21:00)
[2017-12-04] MEDS: VITAMIN B COMPLEX/VIT C CAP PO (09:00)
[2017-12-04] MEDS: PREGABALIN 50 MG CAP PO ×2 (09:04→20:56)
[2017-12-04] MEDS: FERROUS SULFATE (EC) 325 MG TAB PO (09:04)
[2017-12-04] MEDS: MULTIVITAMINS/MINERALS TAB PO (09:04)
[2017-12-04] MEDS: LORATADINE 10 MG TAB PO (09:04)
[2017-12-04] MEDS: POTASSIUM CHLORIDE (SR) 10 MEQ TAB PO (09:04)
[2017-12-04] MEDS: METOPROLOL 25 MG TAB PO ×2 (09:05→20:59)
[2017-12-04] MEDS: PANTOPRAZOLE (EC) 40 MG TAB PO (09:05)
[2017-12-04] MEDS: BALSAM PERU/CASTOR OIL 60 GM TUBE TOP ×2 (09:06→20:56)
[2017-12-04] MEDS: NYSTATIN 15 GM CR TOP ×2 (09:07→20:59)
[2017-12-04] MEDS: HYDROCODONE/APAP (5/325) TAB PO ×2 (12:40→20:58)
[2017-12-04] MEDS: LACTOBACILLUS RHAMNOSUS CAP PO (20:58)
[2017-12-04] MEDS: SERTRALINE 50 MG TAB PO (20:58)
[2017-12-04] MEDS: QUETIAPINE 25 MG TAB PO (20:58)
[2017-12-04] MEDS: ENOXAPARIN 100 MG/ML SYG SC (21:21)
[2017-12-04] MEDS: VANCOMYCIN 750 MG in SOD CHLORIDE 0.9% 150 ML IVPB (23:34)
[2017-12-05] MEDS: ACCU-CHEK XX (01:32)
[2017-12-05 06:07] LABS: ADD MAN DIFF? NO
[2017-12-05 06:15] LABS: BASOPHILS % 0.3 % (0.0-2.0); EOSINOPHILS # 0.3 10^3/ul (0.0-0.5); EOSINOPHILS % 2.9 % (0.0-7.0); HEMATOCRIT 27.4 % (37.0-47.0); HEMOGLOBIN 8.4 g/dl (12.0-16.0); LYMPHOCYTES # 1.1 10^3/ul (0.8-2.9); LYMPHOCYTES % 10.2 % (15.0-51.0); MEAN CORPUSCULAR HEMOGLOBIN 25.2 pg (29.0-33.0); MEAN CORPUSCULAR HGB CONC 30.7 g/dl (32.0-37.0); MEAN CORPUSCULAR VOLUME 82.3 fl (82.0-101.0); MEAN PLATELET VOLUME 8.9 fl (7.4-10.4); MONOCYTE # 0.7 10^3/ul (0.3-0.9); MONOCYTES % 6.6 % (0.0-11.0); NEUTROPHIL # 8.2 10^3/ul (1.6-7.5); NEUTROPHILS % 79.2 % (39.0-77.0); PLATELET COUNT 248 10^3/UL (140-415); RED BLOOD COUNT 3.33 10^6/ul (4.20-5.40); RED CELL DISTRIBUTION WIDTH 15.2 % (11.5-14.5)
[2017-12-05 06:15] LABS: WHITE BLOOD COUNT 10.3 10^3/ul (4.8-10.8)
[2017-12-05 06:34] LABS: INR 1.27; PROTIME 16.1 Sec (11.9-14.9); PT RATIO 1.3
[2017-12-05 07:06] LABS: ALANINE AMINOTRANSFERASE 22 IU/L (13-69); ALBUMIN 2.7 g/dl (3.3-4.9); ALBUMIN/GLOBULIN RATIO 0.81; ALKALINE PHOSPHATASE 63 IU/L (42-121); ANION GAP 10 (8-16); ASPARTATE AMINO TRANSFERASE 20 IU/L (15-46); BILIRUBIN,INDIRECT 0.5 mg/dl (0-1.1); BILIRUBIN,TOTAL 0.5 mg/dl (0.2-1.3); BLOOD UREA NITROGEN 14 mg/dl (7-20); CALCIUM 8.2 mg/dl (8.4-10.2); CARBON DIOXIDE 21 mmol/L (21-31); CHLORIDE 112 mmol/L (97-110); CREATININE 1.22 mg/dl (0.44-1.00); GLUCOSE 125 mg/dl (70-220); PHOSPHORUS 3.6 mg/dl (2.5-4.9); POTASSIUM 3.9 mmol/L (3.5-5.1); SODIUM 139 mmol/L (135-144)
[2017-12-05 07:08] LABS: DIGOXIN 0.6 ng/ml (1.0-2.0)
[2017-12-05] MEDS: INSULIN ASPART [NOVOLOG] 3 ML PEN SC ×3 (07:52→17:38)
[2017-12-05] MEDS: HYDROCODONE/APAP (5/325) TAB PO ×2 (08:42→18:45)
[2017-12-05] MEDS: LACTOBACILLUS RHAMNOSUS CAP PO (09:34)
[2017-12-05] MEDS: VITAMIN B COMPLEX/VIT C CAP PO (09:34)
[2017-12-05] MEDS: POTASSIUM CHLORIDE (SR) 10 MEQ TAB PO (09:34)
[2017-12-05] MEDS: PREGABALIN 50 MG CAP PO (09:35)
[2017-12-05] MEDS: PANTOPRAZOLE (EC) 40 MG TAB PO (09:35)
[2017-12-05] MEDS: METOPROLOL 25 MG TAB PO (09:35)
[2017-12-05] MEDS: NYSTATIN 15 GM CR TOP (09:36)
[2017-12-05] MEDS: BALSAM PERU/CASTOR OIL 60 GM TUBE TOP (09:37)
[2017-12-05] MEDS: traMADol 50 MG TAB PO (12:23)
[2017-12-05] MEDS: DIGOXIN 0.125 MG TAB PO (12:26)
[2017-12-05 18:23] LABS: RAPID PLASMA REAGIN NONREACTIVE (NR)
[2017-12-11] MEDS ORDERED: MULTIVITAMINS/MINERALS TAB PO (09:00)
[2017-12-11] MEDS ORDERED: FERROUS SULFATE (EC) 325 MG TAB PO (09:00)
== END 2017-12-05 20:35 | DRG 853 ==
LOC: E/R 12:04 → MS2 13:48
PROC: 0QB10ZZ Excision of Sacrum, Open Approach (ICD-10-PCS; principal; 2017-11-28 14:30)
PROC: 02HV33Z Insertion of Infusion Device into Superior Vena Cava, Percutaneous Approach (ICD-10-PCS; 2017-11-28 17:40)
DX: A41.02 Sepsis due to Methicillin resistant Staphylococcus aureus (principal); L89.154 Pressure ulcer of sacral region, stage 4; J18.9 Pneumonia, unspecified organism; N17.9 Acute kidney failure, unspecified; F05 Delirium due to known physiological condition; I38 Endocarditis, valve unspecified; R65.20 Severe sepsis without septic shock; E11.9 Type 2 diabetes mellitus without complications; R13.10 Dysphagia, unspecified; F03.90 Unspecified dementia, unspecified severity, without behavioral disturbance, psychotic disturbance, mood disturbance, and anxiety; Z66 Do not resuscitate; R31.0 Gross hematuria; Z95.1 Presence of aortocoronary bypass graft; I35.1 Nonrheumatic aortic (valve) insufficiency; I48.2 Chronic atrial fibrillation
CPT/HCPCS: 36569; 71045; 76937; 80048; 80053; 80069; 80162; 80202; 82607; 82746; 82962; 83036; 83605; 83735; 84100; 84443; 84484; 85025; 85610; 85730; 86592; 87040; 87086; 88104; 88304; 92526; 92610; 93005; 93306; 93971; 94640; 94664; 96374; 96375; 99291-25

== ENCOUNTER 2017-12-25 17:05 | Inpatient (IN) | payer MEDICARE, OTHER ==
[2017-12-25 18:52] LABS: ADD MAN DIFF? NO
[2017-12-25] MEDS: SODIUM CHLORIDE 0.9% 1L BAG IV* (18:54)
[2017-12-25 18:58] LABS: BASOPHILS % 0.4 % (0.0-2.0); EOSINOPHILS # 0.2 10^3/ul (0.0-0.5); EOSINOPHILS % 1.6 % (0.0-7.0); HEMATOCRIT 28.9 % (37.0-47.0); HEMOGLOBIN 8.9 g/dl (12.0-16.0); IMMATURE GRANS #M 0.14 10^3/ul; IMMATURE GRANS % (M) 1.4 %; LYMPHOCYTES # 1.6 10^3/ul (0.8-2.9); LYMPHOCYTES % 16.5 % (15.0-51.0); MEAN CORPUSCULAR HEMOGLOBIN 24.9 pg (29.0-33.0); MEAN CORPUSCULAR HGB CONC 30.8 g/dl (32.0-37.0); MEAN CORPUSCULAR VOLUME 80.7 fl (82.0-101.0); MEAN PLATELET VOLUME 8.4 fl (7.4-10.4); MONOCYTE # 1.1 10^3/ul (0.3-0.9); MONOCYTES % 10.9 % (0.0-11.0); NEUTROPHIL # 6.9 10^3/ul (1.6-7.5); NEUTROPHILS % 69.2 % (39.0-77.0); PLATELET COUNT 359 10^3/UL (140-415); RED BLOOD COUNT 3.58 10^6/ul (4.20-5.40); RED CELL DISTRIBUTION WIDTH 15.4 % (11.5-14.5)
[2017-12-25 18:58] LABS: WHITE BLOOD COUNT 9.9 10^3/ul (4.8-10.8)
[2017-12-25 19:15] LABS: ADD UMIC YES; ALANINE AMINOTRANSFERASE 22 IU/L (13-69); ALBUMIN/GLOBULIN RATIO 0.78; ALKALINE PHOSPHATASE 109 IU/L (42-121); ANION GAP 16 (8-16); ASPARTATE AMINO TRANSFERASE 30 IU/L (15-46); BILIRUBIN,INDIRECT 0.2 mg/dl (0-1.1); BILIRUBIN,TOTAL 0.2 mg/dl (0.2-1.3); BLOOD UREA NITROGEN 30 mg/dl (7-20); CALCIUM 8.7 mg/dl (8.4-10.2); CARBON DIOXIDE 26 mmol/L (21-31); CHLORIDE 99 mmol/L (97-110); CREATININE 1.15 mg/dl (0.44-1.00); GLUCOSE 179 mg/dl (70-220); SODIUM 136 mmol/L (135-144); TOTAL PROTEIN 6.8 g/dl (6.1-8.1); UR ASCORBIC ACID 40 mg/dL (NEGATIVE); UR BACTERIA MODERATE /HPF (NONE SEEN); UR BILIRUBIN (Dip) NEGATIVE (NEGATIVE); UR BLOOD (Dip) 1+ mg/dL (NEGATIVE); UR CLARITY TURBID (CLEAR); UR COLOR AMBER (YELLOW); UR GLUCOSE (Dip) NEGATIVE (NEGATIVE); UR KETONES (Dip) NEGATIVE (NEGATIVE); UR LEUKOCYTE ESTERASE (Dip) 2+ Leu/ul (NEGATIVE); UR NITRITE (Dip) NEGATIVE (NEGATIVE); UR RBC 16 /HPF (0-5); UR SPECIFIC GRAVITY (Dip) 1.017 (1.003-1.030); UR SQUAMOUS EPITHELIAL CELL FEW /HPF (FEW); UR TOTAL PROTEIN (Dip) 2+ mg/dl (NEGATIVE); UR UROBILINOGEN (Dip) NEGATIVE (NEGATIVE); UR WBC > 182 /HPF (0-5)
[2017-12-25 19:23] LABS: LACTIC ACID 3.3 mmol/L (0.5-2.0)
[2017-12-25 19:23] LABS: INR 1.11; PROTIME 14.5 Sec (11.9-14.9); PT RATIO 1.1
[2017-12-25 19:24] LABS: PARTIAL THROMBOPLASTIN TIME 29.8 Sec (25.0-35.0)
[2017-12-25 19:26] LABS: TROPONIN-I < 0.010 ng/ml (0.000-0.120)
[2017-12-25] MEDS ORDERED: SOD CHLORIDE 0.9% 1,900 ML IV (19:30)
[2017-12-25] MEDS: MEROPENEM 1 GM/50ML(PMX) 50 ML IVPB (19:53)
[2017-12-25] MEDS: VANCOMYCIN 1 GM (PMX) 250 ML IVPB (20:47)
[2017-12-25 21:21] LABS: LACTIC ACID 1.3 mmol/L (0.5-2.0)
[2017-12-26] MEDS: ACETAMINOPHEN 325 MG TAB PO (00:54)
[2017-12-26] MEDS ORDERED: GLUCAGON 1 MG INJ IM (01:00)
[2017-12-26] MEDS ORDERED: DEXTROSE 50% 50 ML SYRINGE IV ×2 (01:00)
[2017-12-26] MEDS ORDERED: GLUCOSE GEL 15 GRAM TUBE PO ×2 (01:00)
[2017-12-26] MEDS ORDERED: GLUCOSE GEL 15 GRAM TUBE BUCCAL (01:00)
[2017-12-26] MEDS: ACCU-CHEK XX (02:00)
[2017-12-26] MEDS: morphine 4 MG/ML VIAL IV (04:23)
[2017-12-26] MEDS: HYDROCODONE/APAP (5/325) TAB PO ×3 (05:00→20:41)
[2017-12-26] MEDS: HYDROmorphONE 0.5 MG/0.5 ML SYG IV (05:55)
[2017-12-26] MEDS ORDERED: ALBUTEROL 0.083% (NEB) 2.5 MG/3 ML AMP NEB (07:30)
[2017-12-26] MEDS: CLOPIDOGREL 75 MG TAB PO ×2 (09:00→13:31)
[2017-12-26] MEDS: CARBOXYMETHYLCELLULOSE 0.5% 0.4 ML OPH BOTH EYES ×4 (09:00→20:34)
[2017-12-26] MEDS: INSULIN ASPART [NOVOLOG] 3 ML PEN SC ×4 (09:51→20:34)
[2017-12-26] MEDS ORDERED: CEFTRIAXONE 1 GM/50 ML (PMX) 50 ML IVPB (10:00)
[2017-12-26] MEDS ORDERED: VANCOMYCIN IV PER PHARMACY XX (10:30)
[2017-12-26] MEDS: CEFEPIME 1GM/50 ML (PMX) 50 ML IVPB ×2 (12:14→20:35)
[2017-12-26] MEDS: DIGOXIN 0.125 MG TAB PO (13:30)
[2017-12-26] MEDS ORDERED: PENDING SANTYL ORDER FOR WOUND CARE XX (17:00)
[2017-12-26] MEDS: VANCOMYCIN 750 MG in SOD CHLORIDE 0.9% 150 ML IVPB (20:31)
[2017-12-26] MEDS: QUETIAPINE 25 MG TAB PO (20:33)
[2017-12-27] MEDS: ACCU-CHEK XX (01:45)
[2017-12-27] MEDS ORDERED: COLLAGENASE 5 GM (UD JAR) TOP (02:36)
[2017-12-27 05:56] LABS: ADD MAN DIFF? NO
[2017-12-27 06:03] LABS: BASOPHILS % 0.4 % (0.0-2.0); EOSINOPHILS # 0.2 10^3/ul (0.0-0.5); EOSINOPHILS % 2.8 % (0.0-7.0); HEMATOCRIT 28.1 % (37.0-47.0); HEMOGLOBIN 8.4 g/dl (12.0-16.0); IMMATURE GRANS #M 0.14 10^3/ul; IMMATURE GRANS % (M) 1.6 %; LYMPHOCYTES # 1.2 10^3/ul (0.8-2.9); LYMPHOCYTES % 13.8 % (15.0-51.0); MEAN CORPUSCULAR HEMOGLOBIN 24.3 pg (29.0-33.0); MEAN CORPUSCULAR HGB CONC 29.9 g/dl (32.0-37.0); MEAN CORPUSCULAR VOLUME 81.4 fl (82.0-101.0); MEAN PLATELET VOLUME 8.4 fl (7.4-10.4); MONOCYTE # 0.6 10^3/ul (0.3-0.9); MONOCYTES % 7.4 % (0.0-11.0); NEUTROPHIL # 6.3 10^3/ul (1.6-7.5); PLATELET COUNT 284 10^3/UL (140-415); RED BLOOD COUNT 3.45 10^6/ul (4.20-5.40); RED CELL DISTRIBUTION WIDTH 15.7 % (11.5-14.5)
[2017-12-27 06:03] LABS: WHITE BLOOD COUNT 8.5 10^3/ul (4.8-10.8)
[2017-12-27] MEDS: PANTOPRAZOLE (EC) 40 MG TAB PO (06:14)
[2017-12-27] MEDS: HYDROCODONE/APAP (5/325) TAB PO (06:14)
[2017-12-27 06:45] LABS: ANION GAP 12 (8-16); BLOOD UREA NITROGEN 23 mg/dl (7-20); CALCIUM 8.4 mg/dl (8.4-10.2); CARBON DIOXIDE 25 mmol/L (21-31); CHLORIDE 105 mmol/L (97-110); CREATININE 0.93 mg/dl (0.44-1.00); GLUCOSE 121 mg/dl (70-220); POTASSIUM 4.4 mmol/L (3.5-5.1); SODIUM 138 mmol/L (135-144)
[2017-12-27] MEDS: INSULIN ASPART [NOVOLOG] 3 ML PEN SC ×4 (08:00→20:38)
[2017-12-27] MEDS: CEFEPIME 1GM/50 ML (PMX) 50 ML IVPB ×2 (08:33→22:10)
[2017-12-27] MEDS: CARBOXYMETHYLCELLULOSE 0.5% 0.4 ML OPH BOTH EYES ×4 (08:34→20:30)
[2017-12-27] MEDS: CLOPIDOGREL 75 MG TAB PO (09:00)
[2017-12-27] MEDS: morphine 2 MG INJ IV ×2 (10:47→20:28)
[2017-12-27] MEDS: DIGOXIN 0.125 MG TAB PO (13:17)
[2017-12-27] MEDS: D5W-0.45 NACL + KCL 20 MEQ 1,000 ML IV (14:59)
[2017-12-27] MEDS: COLLAGENASE 5 GM (UD JAR) TOP (16:16)
[2017-12-27] MEDS: VANCOMYCIN 750 MG in SOD CHLORIDE 0.9% 150 ML IVPB (20:22)
[2017-12-27] MEDS: QUETIAPINE 25 MG TAB PO (20:30)
[2017-12-28] MEDS: ACCU-CHEK XX (01:41)
[2017-12-28] MEDS: morphine 2 MG INJ IV ×2 (03:29→16:28)
[2017-12-28] MEDS: COLLAGENASE 5 GM (UD JAR) TOP ×2 (03:30→09:24)
[2017-12-28] MEDS: D5W-0.45 NACL + KCL 20 MEQ 1,000 ML IV ×2 (03:50→09:44)
[2017-12-28] MEDS: INSULIN ASPART [NOVOLOG] 3 ML PEN SC ×3 (08:00→18:05)
[2017-12-28] MEDS: CARBOXYMETHYLCELLULOSE 0.5% 0.4 ML OPH BOTH EYES ×3 (09:00→17:00)
[2017-12-28] MEDS: CEFEPIME 1GM/50 ML (PMX) 50 ML IVPB (09:24)
[2017-12-28] MEDS: PANTOPRAZOLE (EC) 40 MG TAB PO (09:24)
[2017-12-28] MEDS: CLOPIDOGREL 75 MG TAB PO (09:25)
[2017-12-28] MEDS: DIGOXIN 0.125 MG TAB PO (16:27)
[2017-12-28] MEDS ORDERED: morphine LIQ (10 MG/5 ML) CUP PO (17:30)
[2017-12-28] MEDS ORDERED: ZYVOX 600 MG TAB PO (21:00)
== END 2017-12-28 18:29 | DRG 871 ==
LOC: PP2 12-28 05:12 → E/R 17:05 → 6WM 19:30
PROVIDERS: Internal Medicine
DX: A41.9 Sepsis, unspecified organism (principal); L89.154 Pressure ulcer of sacral region, stage 4; N39.0 Urinary tract infection, site not specified; E11.9 Type 2 diabetes mellitus without complications; N28.9 Disorder of kidney and ureter, unspecified; I48.2 Chronic atrial fibrillation; F03.90 Unspecified dementia, unspecified severity, without behavioral disturbance, psychotic disturbance, mood disturbance, and anxiety; E86.0 Dehydration; I25.10 Atherosclerotic heart disease of native coronary artery without angina pectoris; D63.8 Anemia in other chronic diseases classified elsewhere; I50.9 Heart failure, unspecified; Z66 Do not resuscitate; F44.4 Conversion disorder with motor symptom or deficit; Z95.2 Presence of prosthetic heart valve; Z95.1 Presence of aortocoronary bypass graft; Z79.4 Long term (current) use of insulin; Z90.49 Acquired absence of other specified parts of digestive tract; Z79.82 Long term (current) use of aspirin
CPT/HCPCS: 71045; 80048; 80053; 81001; 82962; 83605; 84484; 85025; 85610; 85730; 87040; 87070; 87081; 87086; 92526; 92610; 93005; 99291-25